=== PATIENT | male | born 1995 | race Hispanic/Latino ===

== ENCOUNTER 2022-09-18 13:57 | Emergency (ER) | payer OTHER | END 2022-09-18 15:32 | disposition home or self-care (01) | LOC: BURERS 13:57 | DX: S10.93XA Contusion of unspecified part of neck, initial encounter (principal); S20.312A Abrasion of left front wall of thorax, initial encounter; S40.812A Abrasion of left upper arm, initial encounter; S30.811A Abrasion of abdominal wall, initial encounter; V47.1XXA Car passenger injured in collision with fixed or stationary object in nontraffic accident, initial encounter; W22.10XA Striking against or struck by unspecified automobile airbag, initial encounter | CPT/HCPCS: 99283 ==